=== PATIENT | female | born 1965 | race Caucasian/White ===

== ENCOUNTER → 2016-04-06 | Outpatient (CLI) | payer BC ==
--- NOTE | 2016-04-06 12:15 | REPMRS ---
Patient History The patient states she had a clinical breast exam in Family history of breast cancer in paternal aunt at age 50 or over, prostate cancer in paternal uncle at age 50 or over, and colorectal cancer in paternal uncle at age 50 or over. 2 benign stereotactic core biopsies of the right breast, April 2015. Digital Woman Screen Mammo: April 06, 2016 - Exam #: [id number] Bilateral CC and MLO view(s) were taken. Technologist: Denisha Sims, Technologist Prior study comparison: May 03, 2015, right breast digital mammo diagnostic unilateral, performed at [facility]. April 22, 2015, digital woman screen mammo performed at [facility]. FINDINGS: The breast tissue is heterogeneously dense. This may lower the sensitivity of mammography. There is a moderate amount of heterogeneously dense fibroglandular tissue which is fairly symmetric. There are two needle biopsy marker clips projecting in the right breast. There is no interval development of dominant mass, architectural distortion, or clustered microcalcification typical of malignancy. There has been no change in the appearance of the mammogram from the prior studies. ASSESSMENT: BI-RADS/ACR category 1 mammogram. Negative. Recommendation Routine screening mammogram of both breasts in 1 year (for women over age 40). This mammogram was interpreted with the aid of an FDA-approved computer-aided dectection system. Electronically Signed By: Aniket Singleton MD 04/06/16 [id number]
== END ==
LOC: M WHC 09:41
PROVIDERS: ATTEND Nurse Practitioner
DX: Z12.31 Encounter for screening mammogram for malignant neoplasm of breast (principal); Q24.1 Levocardia

== ENCOUNTER → 2018-06-12 | Outpatient (REF) | payer BC ==
[2018-06-12 13:10] LABS: HEMATOCRIT 35.3 % (36.0-47.0); HEMOGLOBIN 11.2 g/dl (12.0-15.5); MEAN CORPUSCULAR HEMOGLOBIN 27.1 pg (27.0-33.0); MEAN CORPUSCULAR HGB CONC 31.7 g/dl (32.0-36.5); MEAN CORPUSCULAR VOLUME 85.3 fl (80.0-96.0); PLATELET COUNT, AUTOMATED 290 10^3/uL (150-450); RED BLOOD COUNT 4.14 10^6/uL (4.00-5.40); WHITE BLOOD COUNT 6.4 10^3/uL (4.0-10.0)
[2018-06-12 13:17] LABS: ALBUMIN 3.5 GM/DL (3.2-5.2); ALT/SGPT 20 U/L (12-78); BILIRUBIN,TOTAL 0.3 MG/DL (0.2-1.0); BLOOD UREA NITROGEN 12 MG/DL (7-18); CALCIUM LEVEL 8.4 MG/DL (8.5-10.1); CARBON DIOXIDE LEVEL 27 MEQ/L (21-32); CHLORIDE LEVEL 106 MEQ/L (98-107); CHOLESTEROL LEVEL 209 MG/DL (<200); CHOLESTEROL RISK RATIO 3.483 (<5); CREATININE FOR GFR 0.68 MG/DL (0.55-1.30); GLOMERULAR FILTRATION RATE > 60.0 (>51); GLUCOSE, FASTING 86 MG/DL (70-100); HDL CHOLESTEROL 60 MG/DL (>40); LDL CHOLESTEROL 127 MG/DL (<100); NON-HDL-C 149 MG/DL; POTASSIUM SERUM 3.6 MEQ/L (3.5-5.1); SODIUM LEVEL 140 MEQ/L (136-145); TOTAL PROTEIN 6.8 GM/DL (6.4-8.2); TRIGLYCERIDES LEVEL 110 MG/DL (<150)
== END ==
LOC: M SFHCADAM 08:02
PROVIDERS: ATTEND Physician Assistant
DX: K21.9 Gastro-esophageal reflux disease without esophagitis (principal); K80.20 Calculus of gallbladder without cholecystitis without obstruction; E55.9 Vitamin D deficiency, unspecified; Z13.1 Encounter for screening for diabetes mellitus; Z13.220 Encounter for screening for lipoid disorders; Z12.11 Encounter for screening for malignant neoplasm of colon

== ENCOUNTER 2018-10-04 09:44 | Day surgery (SDC) | payer BC ==
[~2018-10-04] VITALS: Ht 157.5 cm; Wt 67.6 kg
[~2018-10-04 09:44] MED LIST: NS 1,000 ML IV ONE; OMEP20CA4 PO; SUCR1TAB56 PO
[2018-10-04] MEDS ORDERED: fentaNYL 100 MCG/2 ML INJECTION (J3010) As Ordered ONE (10:29)
[2018-10-04] MEDS ORDERED: LIDOCAINE 2% INJ 100 MG/5 ML SDV (FOR ANES.) As Ordered ONE (10:29)
[2018-10-04] MEDS ORDERED: PROPOFOL 200 MG/20 ML VIAL As Ordered ONE ×2 (10:29→11:25)
--- NOTE | 2018-10-04 11:20 | ROOR ---
Patient Name: Yolanda Quiroz Procedure Date: 10/04/2018 10:52 AM Date of : 1965 Age: 53 Room: [facility] Gender: Female Note Status: Finalized Procedure: Upper GI endoscopy Indications: Heartburn Providers: Paddy EDWARDS MD Referring MD: Panda Galarza MD Requesting Provider: Medicines: Monitored Anesthesia Care Complications: No immediate complications. Procedure: Pre-Anesthesia Assessment: - The heart rate, respiratory rate, oxygen saturations, blood pressure, adequacy of pulmonary ventilation, and response to care were monitored throughout the procedure. The Endoscope was introduced through the mouth, and advanced to the second part of duodenum. The upper GI endoscopy was accomplished without difficulty. The patient tolerated the procedure well. Findings: The examined esophagus was normal. Multiple 5 to 10 mm semi-sessile fundic gland appearing polyps with no stigmata of recent bleeding were found in the gastric fundus and in the gastric body. The polyp was removed with a cold snare. Polyp resection was incomplete, and the resected tissue was partially retrieved. The exam of the stomach was otherwise normal. Mucosal flattening was found in the first portion of the duodenum. Biopsies for histology were taken with a cold forceps for evaluation of celiac disease. The exam of the duodenum was otherwise normal. Impression: - Normal esophagus. - Multiple fundic gland appearing polyps. [employer] sample obtained via cold snare excision to r/o adenoma. - Stomach is otherwise normal. - Mildly flattened appearance of mucosa was found in the 1st portion of the duodenum. Biopsied to r/o celiac. - The second and third portions appear normal. Recommendation: - Return to endoscopist in 2 weeks. - Continue present medications. (consider stopping omeprazole and using pepcid only) Paddy Edwards MD Paddy EDWARDS MD 10/04/2018 11:20:20 AM Electronically signed by Paddy EDWARDS MD Number of Addenda: 0 Note Initiated On: 10/04/2018 10:52 AM Estimated Blood Loss: Estimated blood loss: none.
--- NOTE | 2018-10-04 11:31 | ROOR ---
Patient Name: Yolanda Quiroz Procedure Date: 10/04/2018 10:52 AM Date of : 1965 Age: 53 Room: [facility] Gender: Female Note Status: Finalized Procedure: Colonoscopy Indications: Screening in patient at increased risk: Colorectal cancer in sister before age 60 Providers: Paddy EDWARDS MD Referring MD: Panda Galarza MD Requesting Provider: Medicines: Monitored Anesthesia Care Complications: No immediate complications. Procedure: Pre-Anesthesia Assessment: - The heart rate, respiratory rate, oxygen saturations, blood pressure, adequacy of pulmonary ventilation, and response to care were monitored throughout the procedure. The Colonoscope was introduced through the anus and advanced to 10 cm into the ileum. The colonoscopy was performed without difficulty. The patient tolerated the procedure well. The quality of the bowel preparation was good. Findings: The perianal and digital rectal examinations were normal. Retroflexion in the right colon was performed. The entire examined colon appeared normal on direct and retroflexion views. Impression: - Small internal hemorrhoids. - The entire colon is normal on direct and retroflexion views. - No specimens collected. Recommendation: - Repeat colonoscopy in 5 years for screening purposes. Paddy Edwards MD Paddy EDWARDS MD 10/04/2018 11:31:16 AM Electronically signed by Paddy EDWARDS MD Number of Addenda: 0 Note Initiated On: 10/04/2018 10:52 AM Estimated Blood Loss: Estimated blood loss: none.
[2018-10-04 12:03] VITALS: BP 133/75
== END 2018-10-04 12:04 | disposition home or self-care (01) ==
LOC: M OPP 09:44
PROVIDERS: ATTEND Internal Medicine Gastroenterology
DX: Z12.11 Encounter for screening for malignant neoplasm of colon (principal); Z80.0 Family history of malignant neoplasm of digestive organs; K31.7 Polyp of stomach and duodenum; K31.89 Other diseases of stomach and duodenum; R12 Heartburn
CPT/HCPCS: 43239; 43251; 88305; G0105; J3010

== ENCOUNTER → 2018-10-22 | Outpatient (CLI) | payer BC ==
[~2018-10-22] MED LIST changes: -NS 1,000 ML IV ONE
--- NOTE | 2018-10-22 09:09 | REP ---
Abdominal right upper quadrant ultrasound: Comparison is 02/19/2016. There are multiple mobile echogenic foci in the gallbladder compatible with multiple gallbladder calculi. These were also present previously. In addition, on the current study, there is a non mobile echogenic focus in the gallbladder neck demonstrating acoustic shadowing which could represent a gallbladder mass or large adherent calculus versus non mobile biliary sludge. It measures 1.9 cm in diameter. There is no gallbladder wall thickening or pericholecystic fluid. There is no intrahepatic or extrahepatic biliary duct dilatation. The common biliary duct measures 3.9 ml in diameter. The visualized areas of the pancreas are unremarkable. The hepatic parenchyma is homogeneous and otherwise unremarkable. No hepatic masses. The right kidney is normal size measuring 10.4 x 5.2 x 4.5 cm. There is no right renal calculus, hydronephrosis, solid mass or cystic mass. Impression: There is cholelithiasis, as previously. There is no gallbladder wall thickening or pericholecystic fluid. There is no intrahepatic or extrahepatic biliary duct dilatation. However, there is a new 1.9 cm mass-like density in the gallbladder near the gallbladder neck as an interval change, nonspecific: gallbladder mass versus adherent calculus versus non mobile biliary sludge. MRI might be useful for further evaluation. Electronically Signed by Heriberto Malhotra MD 10/22/2018 09:00 A
== END ==
LOC: M RAD 06:55
PROVIDERS: ATTEND Physician Assistant Medical
DX: K80.20 Calculus of gallbladder without cholecystitis without obstruction (principal); K82.8 Other specified diseases of gallbladder

== ENCOUNTER → 2018-11-22 | Outpatient (CLI) | payer BC ==
--- NOTE | 2018-11-22 15:11 | REP ---
MRI ABDOMEN WITH AND WITHOUT CONTRAST: Correlation ultrasound 10/22/2018, which showed a possible gallbladder mass. Multiple sequences obtained in the axial, coronal and sagittal planes prior to and following the intravenous administration of 14 mL ProHance. Gallstones and sludge are seen in the gallbladder, which is mildly distended. Two dominant gallstones are seen each measuring 1.5 cm in diameter. There is adjacent ill-defined sludge in the gallbladder lumen. No gallbladder wall mass is seen. There is no intrahepatic or extrahepatic biliary dilatation. I do not see evidence of choledocholithiasis. No liver mass is seen. The spleen is normal in size with no intrinsic abnormality. The adrenals, pancreas, and visualized kidneys are unremarkable. I see no adenopathy or free fluid in the abdomen. IMPRESSION: Two dominant gallstones in the gallbladder 1.5 cm in diameter respectively. Mild sludge also seen in the gallbladder lumen. No evidence of gallbladder mass. No liver mass. No biliary dilatation. No adenopathy. Electronically Signed by Heriberto Garnett MD 11/22/2018 06:54 P
== END ==
LOC: M PLARAD 13:11
PROVIDERS: ATTEND Physician Assistant Medical
DX: R93.3 Abnormal findings on diagnostic imaging of other parts of digestive tract (principal); K80.20 Calculus of gallbladder without cholecystitis without obstruction

== ENCOUNTER → 2018-11-22 | Outpatient (REF) | payer BC ==
[2018-11-22 15:57] LABS: HEMATOCRIT 36.4 % (36.0-47.0); HEMOGLOBIN 11.3 g/dl (12.0-15.5); MEAN CORPUSCULAR HEMOGLOBIN 25.3 pg (27.0-33.0); MEAN CORPUSCULAR VOLUME 81.6 fl (80.0-96.0); PLATELET COUNT, AUTOMATED 290 10^3/uL (150-450); RED BLOOD COUNT 4.46 10^6/uL (4.00-5.40); WHITE BLOOD COUNT 7.6 10^3/uL (4.0-10.0)
== END ==
LOC: M SFHCPLAZ 12:48
PROVIDERS: ATTEND Family Medicine
DX: Z86.2 Personal history of diseases of the blood and blood-forming organs and certain disorders involving the immune mechanism (principal)

== ENCOUNTER 2018-11-28 06:49 | Day surgery (SDC) | payer BC ==
[~2018-11-28] VITALS: Ht 157.5 cm; Wt 68.9 kg
[~2018-11-28 06:49] MED LIST changes: +LIDOCAINE 1% MDV 20ML VIAL SQ PRN; +OMEP1CAP73 PO; -OMEP20CA4 PO
[2018-11-28] MEDS ORDERED: SUGAMMADEX SODIUM 500 MG/5 ML VIAL (BRIDION) As Ordered ONE (07:00)
[2018-11-28] MEDS ORDERED: propofoL 200 MG/20 ML VIAL As Ordered ONE (07:00)
[2018-11-28] MEDS ORDERED: fentaNYL 250 MCG/5 ML INJECTION (J3010) As Ordered ONE (07:00)
[2018-11-28] MEDS ORDERED: MIDAZOLAM INJ 2 MG/2 ML VIAL (J2250) As Ordered ONE (07:00)
[2018-11-28] MEDS ORDERED: dexameTHASONE 4 MG/ML 1ML VIAL (J1100) As Ordered ONE (07:00)
[2018-11-28] MEDS ORDERED: ROCURONIUM BROMIDE 50 MG/5 ML VIAL As Ordered ONE (07:00)
[2018-11-28] MEDS ORDERED: LIDOCAINE 2% INJ 100 MG/5 ML SDV (FOR ANES.) As Ordered ONE (07:00)
[2018-11-28] MEDS ORDERED: ONDANSETRON 4MG/2ML VIAL (J2405) As Ordered ONE (07:00)
[2018-11-28] MEDS ORDERED: LR 1,000 ML IV ONE (07:00)
[2018-11-28] MEDS ORDERED: KETOROLAC 60 MG/2 ML VIAL (J1885) As Ordered ONE (07:00)
[2018-11-28] MEDS ORDERED: ACETAMINOPHEN 1000MG 100ML IV BTL (OFIRMEV) (J0131 PER 10MG) As Ordered ONE (07:01)
[2018-11-28] MEDS ORDERED: BUPIVACAINE/EPIN 0.25% 30 ML VIAL As Ordered ONE (08:16)
[2018-11-28] MEDS ORDERED: METHOCARBAMOL 1,000 MG/10 ML VIAL (J2800) As Ordered ONE (09:03)
[2018-11-28] MEDS ORDERED: LR 1,000 ML IV SCH ×2 (10:15→12:00)
[2018-11-28] MEDS ORDERED: NORCO, ANEXSIA 5/325MG TABLET (HYDROcodone/ACETAMINOPHEN) PO PRN (10:15)
[2018-11-28] MEDS ORDERED: ONDANSETRON 4MG/2ML VIAL (J2405) IV PRN ×2 (10:15→12:00)
[2018-11-28] MEDS ORDERED: PROMETHAZINE INJ 25 MG/ML VIAL (J2550) IV PRN ×2 (10:15→12:00)
[2018-11-28] MEDS ORDERED: HYDROMORPHONE HCL 0.5 MG/ 0.5 ML SYRINGE (J1170 PER 1) IV PRN ×2 (10:15→12:00)
[2018-11-28] MEDS ORDERED: METOCLOPRAMIDE INJ 10MG/2ML VIAL (J2765) IV PRN ×2 (10:15→12:00)
[2018-11-28] MEDS ORDERED: fentaNYL 100 MCG/2 ML INJECTION (J3010) IV PRN ×2 (10:15→12:00)
[2018-11-28] MEDS ORDERED: oxyCODONE 5MG TAB As Ordered ONE (11:34)
[2018-11-28] MEDS ORDERED: oxyCODONE 5MG TAB PO PRN (12:00)
[2018-11-28 12:10] VITALS: BP 135/76
--- NOTE | 2018-11-28 14:58 | RO ---
DATE OF PROCEDURE: 11/28/2018 PREOPERATIVE DIAGNOSIS: Symptomatic cholelithiasis. POSTOPERATIVE DIAGNOSIS: Symptomatic cholelithiasis. PROCEDURE: Robotic cholecystectomy. SURGEON: Heriberto Lang DO ASSIST: DIONNE Holder ANESTHESIA: General. ESTIMATED BLOOD LOSS: 25 mL. COMPLICATIONS: None. INDICATIONS FOR PROCEDURE: Patient is a 53-year-old female with persistent right upper quadrant pains found to have symptomatic cholelithiasis. Recommendation was to proceed with robotic cholecystectomy. Risks and benefits of procedure not limited to but including bleeding, infection, hernia formation, damage to surrounding structures, need for further surgery, were discussed in detail with the patient. Informed consent was obtained and procedure planned. PROCEDURE: The patient was brought back to operating room 7. After sufficient sedation, the abdomen was sterilely prepped and draped. Next, a time out was done to confirm proper patient and proper procedure. Following that, an 8 mm incision made in the left lower quadrant and a Veress needle inserted and the abdomen was insufflated to 15 mmHg. Next, the Veress needle was removed and an 8 mm robotic port was used to gain access to the abdomen. Once the was entered, three more robotic ports were placed from the left to right midabdomen in a straight line. Once all the ports were placed, the robot was docked. Next, from the console the fourth arm was used to elevate the fundus of the gallbladder up towards the right shoulder. The neck of the gallbladder was then elevated and the cystic duct and cystic artery were dissected free using a combination of blunt sharp dissection. Once they are both identified, they are both doubly clipped and cut. The gallbladder was then dissected free from the gallbladder fossa using electrocautery. Gallbladder was then placed inside of a 5 mm EndoCatch bag and removed through the left sided port site. The abdomen was then desufflated. Skin incisions were closed #4-0 Vicryl subcuticular sutures. The abdomen was cleaned and dried. Steri-Strips, 4x4 and tape were applied thus ending procedure.
== END 2018-11-28 12:23 | disposition home or self-care (01) ==
LOC: M SDC 06:49
PROVIDERS: ATTEND Surgery
DX: K80.10 Calculus of gallbladder with chronic cholecystitis without obstruction (principal); K21.9 Gastro-esophageal reflux disease without esophagitis; Z79.899 Other long term (current) drug therapy; Z91.010 Allergy to peanuts
CPT/HCPCS: 47562; 88304; J0131; J1100; J1885; J2250; J2405; J2800; J3010

== ENCOUNTER 2019-01-12 09:55 | Emergency (ER) | payer BC ==
[~2019-01-12] VITALS: Ht 154.9 cm; Wt 69.8 kg
[2019-01-12 09:55] VITALS: BP 154/73
[~2019-01-12 09:55] MED LIST changes: -LIDOCAINE 1% MDV 20ML VIAL SQ PRN; -OMEP1CAP73 PO; +OMEP20CA4 PO
[2019-01-12] MEDS ORDERED: PRED20TA PO (10:11)
[2019-01-12] MEDS ORDERED: MOBI4TAB PO (10:11)
[2019-01-12] MEDS ORDERED: CYCL10TA PO (10:11)
[2019-01-12] MEDS ORDERED: KETOROLAC 60 MG/2 ML VIAL (J1885) IM ONE (10:15)
== END 2019-01-12 10:51 | disposition home or self-care (01) ==
LOC: M ED 09:55
DX: M54.5 Low back pain (principal); Z87.39 Personal history of other diseases of the musculoskeletal system and connective tissue; Z79.899 Other long term (current) drug therapy; Z91.89 Other specified personal risk factors, not elsewhere classified; Z91.010 Allergy to peanuts
CPT/HCPCS: 96372; 99284; J1885

== ENCOUNTER → 2019-02-03 | Outpatient (CLI) | payer BC ==
[~2019-02-03] MED LIST changes: +CYCL10TA PO; +MOBI4TAB PO; +PRED20TA PO
--- NOTE | 2019-02-03 19:38 | ECHO ---
DATE OF PROCEDURE: 02/03/2019 REFERRING PROVIDER: Tonay Galarza INDICATION: Left atrial enlargement. HEIGHT: 157 cm WEIGHT: 57 kg DIMENSIONS: IVS 0.8 LV 4.2 LVPW 1.0 LA 3.1 Aorta 2.6 IVC 0.9 Mitral E-wave velocity 79, A wave 87 E-prime septal 7.0, E-prime lateral 11.7 FINDINGS: The study is of poor technical quality with difficult visualization. The patient is in sinus rhythm. Left ventricle is normal size and systolic function based on limited views. I estimate EF around 60%. Right ventricle also appears normal. Both atria appear normal. Aortic valve is mildly sclerotic but has preserved mobility. Mitral and tricuspid and pulmonic valves appear normal. No pericardial effusion is noted. Inferior vena cava is relatively small caliber and completely collapses inspiration indicative of low central venous pressure. Aortic root is normal. Aortic arch and abdominal aorta were not well seen. Doppler interrogation of aortic valve reveals no stenosis or insufficiency. Same is true for mitral valve. Finally there is no significant tricuspid and pulmonic insufficiency or stenosis. Mitral inflow pattern and tissue Doppler imaging of mitral annulus reveal grade 1 diastolic dysfunction. CONCLUSIONS: 1. Study is of limited technical quality. 2. Normal LV size with grossly preserved LV systolic function and grade 1 diastolic dysfunction. 3. No hemodynamically significant valvular disease. 4. Likely normal or low central venous pressure. 5. Unable to estimate pulmonary artery pressure. COMMENT: SBE prophylaxis is not recommended.
== END ==
LOC: M CARPUL 08:58
PROVIDERS: ATTEND Physician Assistant
DX: I51.7 Cardiomegaly (principal)

== ENCOUNTER → 2021-03-16 | Outpatient (REF) ==
[~2021-03-16] MED LIST changes: +CYCL-707 PO; -CYCL10TA PO; +OMEP1CAP73 PO; -OMEP20CA4 PO
== END ==
LOC: M LABSMTC 12:11
PROVIDERS: ATTEND Pediatrics
DX: Z11.52 Encounter for screening for COVID-19 (principal)

== ENCOUNTER → 2024-02-20 | Outpatient (CLI) | payer BC ==
[2024-02-20 13:14] LABS: BASO % 0.1 % (0.0-1.0); EOS # 0.1 10^3/uL (0.0-0.5); EOS % 1.2 % (0.0-3.0); HEMATOCRIT 39.5 % (36.0-47.0); LYMPH # 2.4 10^3/uL (1.5-5.0); LYMPH % 28.8 % (24.0-44.0); MEAN CORPUSCULAR HEMOGLOBIN 28.7 pg (27.0-33.0); MEAN CORPUSCULAR HGB CONC 32.9 g/dl (32.0-36.5); MEAN CORPUSCULAR VOLUME 87.2 fl (80.0-96.0); MONO # 0.5 10^3/uL (0.0-0.8); MONO % 6.4 % (2.0-8.0); NEUTROPHILS # 5.3 10^3/uL (1.5-8.5); NEUTROPHILS % 63.3 % (36.0-66.0); PLATELET COUNT, AUTOMATED 239 10^3/uL (150-450); RED BLOOD COUNT 4.53 10^6/uL (4.00-5.40); WHITE BLOOD COUNT 8.3 10^3/uL (4.0-10.0)
[2024-02-20 13:46] LABS: HEMOGLOBIN A1c 5.2 % (4.0-6.0)
[2024-02-20 13:47] LABS: FREE T4 1.27 NG/DL (0.89-1.76)
[2024-02-20 13:48] LABS: THYROID STIMULATING HORMONE 1.171 uIU/ML (0.55-4.78)
[2024-02-20 13:49] LABS: ALBUMIN 3.6 G/DL (3.2-5.2); ALKALINE PHOSPHATASE 109 U/L (35-104); ALT/SGPT 21 U/L (7.0-40); AST/SGOT 11 U/L (<34); BILIRUBIN,TOTAL 0.4 MG/DL (0.3-1.2); BLOOD UREA NITROGEN 8 MG/DL (9-23); CALCIUM LEVEL 9.1 MG/DL (8.5-10.1); CARBON DIOXIDE LEVEL 29 MMOL/L (20-31); CHLORIDE LEVEL 103 MMOL/L (98-107); CHOLESTEROL LEVEL 208 MG/DL (<200); CHOLESTEROL RISK RATIO 3.93 (<5); CREATININE FOR GFR 0.63 MG/DL (0.55-1.30); GLOMERULAR FILTRATION RATE > 60.0 (>51); GLUCOSE, FASTING 88 MG/DL (60-100); HDL CHOLESTEROL 52.8 MG/DL (>40); LDL CHOLESTEROL 130.6 MG/DL (<100); NON-HDL-C 155.2 MG/DL; POTASSIUM SERUM 3.4 MMOL/L (3.5-5.1); SODIUM LEVEL 141 MMOL/L (136-145); TOTAL PROTEIN 7.1 G/DL (5.7-8.2); TRIGLYCERIDES LEVEL 123 MG/DL (<150)
[2024-02-20 13:50] LABS: FOLATE 10.4 NG/ML (>5.4); VITAMIN B12 LEVEL 479 PG/ML (211-911)
== END ==
LOC: M WHC 09:00
PROVIDERS: ATTEND Physician Assistant
DX: K21.9 Gastro-esophageal reflux disease without esophagitis (principal); E55.9 Vitamin D deficiency, unspecified; Z13.1 Encounter for screening for diabetes mellitus; Z13.220 Encounter for screening for lipoid disorders; L71.9 Rosacea, unspecified; G25.0 Essential tremor

== ENCOUNTER 2024-04-17 09:42 | Day surgery (SDC) | payer BC, MEDICAID ==
[~2024-04-17] VITALS: Ht 157.5 cm; Wt 65.7 kg
[~2024-04-17 09:42] MED LIST changes: +LIDOCAINE 2% 100MG/5ML SDV (FOR ANES.) As Ordered ONE; +fentaNYL 100 MCG/2 ML INJECTION As Ordered ONE; +propofoL 200 MG/20 ML VIAL As Ordered ONE
[2024-04-17 12:09] VITALS: TEMP 97.4
[2024-04-17] MEDS ORDERED: GLYCOPYRROLATE INJ 0.2 MG/ML 2 ML VIAL As Ordered ONE (12:15)
[2024-04-17 12:32] VITALS: BP 119/85; O2SAT 99
== END 2024-04-17 12:39 | disposition home or self-care (01) ==
LOC: M OPP 09:42
PROVIDERS: ATTEND Internal Medicine Gastroenterology
DX: Z12.11 Encounter for screening for malignant neoplasm of colon (principal); D12.8 Benign neoplasm of rectum; Z80.0 Family history of malignant neoplasm of digestive organs; K31.7 Polyp of stomach and duodenum; R12 Heartburn; Z91.010 Allergy to peanuts; Z91.048 Other nonmedicinal substance allergy status; Z79.899 Other long term (current) drug therapy
CPT/HCPCS: 43239; 43251; 45385; 88305; J1596; J3010

== ENCOUNTER → 2024-05-06 | Outpatient (CLI) | payer BC, MEDICAID ==
[~2024-05-06] MED LIST changes: -LIDOCAINE 2% 100MG/5ML SDV (FOR ANES.) As Ordered ONE; -fentaNYL 100 MCG/2 ML INJECTION As Ordered ONE; -propofoL 200 MG/20 ML VIAL As Ordered ONE
[2024-05-06 18:24] LABS: THYROID STIMULATING HORMONE 1.53 uIU/ML (0.55-4.78)
[2024-05-06 18:26] LABS: FOLATE 8.6 NG/ML (>5.4); RHEUMATOID FACTOR QUANT 4.3 IU/ML (<14)
[2024-05-06 18:55] LABS: HEMOGLOBIN A1c 5.3 % (4.0-6.0)
[2024-05-09 14:43] LABS: ANA SCREEN, IFA NEGATIVE (NEGATIVE)
[2024-05-11 06:03] LABS: VITAMIN E(ALPHA TOCOPHEROL) 9.9 mg/L (5.7-19.9); VITAMIN E(GAMMA TOCOPHEROL) 1.6 mg/L (<=4.3)
[2024-05-12 10:18] LABS: ALPHA-1-GLOBULINS SO 0.3 g/dL (0.2-0.3); ALPHA-2-GLOBULINS SO 0.8 g/dL (0.5-0.9); BETA 2 GLOBULIN 0.4 g/dL (0.2-0.5); BETA-GLOBULIN SO 0.4 g/dL (0.4-0.6)
[2024-05-12 18:16] LABS: VITAMIN B6,PYRIDOXAL PHOSPHATE 3.8 ng/mL (2.1-21.7)
[2024-05-16 02:36] LABS: VITAMIN B1 LEVEL WHOLE BLOOD 117 nmol/L (78-185)
== END ==
LOC: M ADAMS 14:41
PROVIDERS: ATTEND Psychiatry & Neurology Neurology
DX: R25.1 Tremor, unspecified (principal); R41.3 Other amnesia; G25.81 Restless legs syndrome

== ENCOUNTER → 2024-05-06 | Outpatient (REF) | payer BC, MEDICAID ==
[2024-05-09 15:46] LABS: HPV APTIMA Not Detected (Not Detected)
== END ==
LOC: M SFHCADAM 08:03
PROVIDERS: ATTEND Physician Assistant
DX: Z12.4 Encounter for screening for malignant neoplasm of cervix (principal); B96.89 Other specified bacterial agents as the cause of diseases classified elsewhere